=== PATIENT | female | born 1970 | race Two or more races ===

== ENCOUNTER 2016-11-28 13:09 | Emergency (ER) | payer MEDICAID ==
[~2016-11-28] VITALS: Ht 172.7 cm; Wt 72.6 kg
[~2016-11-28 13:09] MED LIST: HYDR25SU13; LIDOCAINE 0.5%; POLY17PO4
--- NOTE | 2016-11-28 13:15 | NUR ---
RECEIVED PT WITH DIFFUSED CHEST PAIN, PRESSURE LIKE, WITH NAUSE AND VOMITING SINCE 1000. PT ALERT, AWAKE, FOLLOWS COMMANDS. SAFETY MEASURES TAKEN, WILL CONTINUE TO MONITOR AND ASSESS.
[2016-11-28] MEDS ORDERED: IV NS 0.9% 250 ML IV ONE (13:47)
[2016-11-28] MEDS ORDERED: IOHEXOL-350 100 ML VIAL IV ONE (13:47)
[2016-11-28] MEDS ORDERED: CT SWABBABLE VALVE TRANS SET 1 EA INFUS.SET MC ONE (13:47)
[2016-11-28 13:53] LABS: BASOPHILS % (AUTO) 0.9 % (0.0-2.0); EOSINOPHILS % (AUTO) 0.8 % (0.0-6.0); HEMATOCRIT 27 % (33-45); HEMOGLOBIN 8.3 g/dL (11.5-14.8); LYMPHOCYTES # (AUTO) 1.8 /CMM (0.8-4.8); MEAN CORPUSCULAR HEMOGLOBIN 19 PG (26.0-33.0); MEAN CORPUSCULAR HGB CONC 31 g/dl (31.0-36.0); MEAN CORPUSCULAR VOLUME 63 fL (82-100); MONOCYTES # (AUTO) 0.2 /CMM (0.1-1.30); MONOCYTES % (AUTO) 4.8 % (2.0-12.0); NEUTROPHILS % (AUTO) 58.5 % (43.0-81.0); PLATELET COUNT (AUTO) 378 /CMM (150-450); RDW COEFFICIENT OF VARIATION 17.5 (11.5-15.0); RED BLOOD CELL COUNT(AUTO) 4.29 MIL/uL (4.0-5.2)
--- NOTE | 2016-11-28 13:55 | NUR ---
PATIENT TAKEN TO CT VIA STRETHCER.
[2016-11-28 13:59] LABS: CALCIUM, SERUM 8.3 mg/dL (8.5-10.1); CARBON DIOXIDE 27 mmol/L (21-32); CHLORIDE 106 mmol/L (98-107); CREATININE 0.8 mg/dL (0.6-1.3); GLUCOSE 88 mg/dL (74-106); POTASSIUM 3.4 mmol/L (3.5-5.1); SODIUM SERUM 139 mmol/L (136-145); UREA NITROGEN, BLOOD 14 mg/dL (7-18)
[2016-11-28] MEDS ORDERED: IV NS 0.9% 500 ML BAG IV ONE (14:00)
[2016-11-28 14:02] LABS: INR 0.95 (0.87-1.13); PROTHROMBIN TIME 9.9 SECS (9.5-12.7)
[2016-11-28 14:08] LABS: TROPONIN I < 0.017 ng/mL (0.00-0.056)
--- NOTE | 2016-11-28 14:16 | NUR ---
PATIENT RETURNED FROM CT.
[2016-11-28 15:27] VITALS: BP 128/86
--- NOTE | 2016-11-28 15:29 | NUR ---
Patient discharged to home in stable condition. Written and verbal after care instructions given. Patient verbalizes understanding of instruction.
== END 2016-11-28 15:28 | disposition home or self-care (01) ==
LOC: ER 13:11
DX: R55 Syncope and collapse (principal); D64.9 Anemia, unspecified; Z88.6 Allergy status to analgesic agent; Z88.5 Allergy status to narcotic agent; Z91.012 Allergy to eggs; Z91.018 Allergy to other foods
CPT/HCPCS: 36415; 70450; 71010; 71275; 74175; 80048; 84484; 85025; 85730; 93005; 99285; A4606; J7040 ×2; J7050; Q9967; Z7610

== ENCOUNTER 2017-10-11 10:25 | Emergency (ER) | payer MEDICAID ==
[~2017-10-11] VITALS: Ht 170.2 cm; Wt 72.6 kg
[2017-10-11 10:27] VITALS: BP 131/80
[2017-10-11] MEDS ORDERED: AMOX/CLAVULANATE 875 MG TABLET ONE (10:48)
[2017-10-11] MEDS ORDERED: TDAP [DIPH/PERTUSSIS/TET] 0.5 ML VIAL IM ONE ×2 (10:49→11:00)
[2017-10-11] MEDS ORDERED: AMOX/CLAVULANATE 875 MG TABLET PO ONE (11:00)
== END 2017-10-11 11:34 | disposition home or self-care (01) ==
LOC: ER 10:27
DX: S91.152A Open bite of left great toe without damage to nail, initial encounter (principal); Z91.012 Allergy to eggs; Z88.6 Allergy status to analgesic agent; Z91.018 Allergy to other foods; W54.0XXA Bitten by dog, initial encounter; Y93.89 Activity, other specified; Y92.89 Other specified places as the place of occurrence of the external cause; Y99.8 Other external cause status
CPT/HCPCS: 73660-TC; 90715; A4606; Z7610